=== PATIENT | male | born 1955 | race African-American/Black ===

== ENCOUNTER 2021-09-17 15:16 | Inpatient (IN) | payer MEDICARE, MEDICAID ==
[~2021-09-17] VITALS: Ht 170.2 cm; Wt 84.4 kg
[2021-09-17 16:12] LABS: HEMATOCRIT. 38.3 % (42.0-52.0); HEMOGLOBIN. 12.8 g/dL (14.0-18.0); MEAN CORPUSCULAR VOLUME 89.8 fL (80.0-94.0); MEAN PLATELET VOLUME 8.5 fl (7.4-10.4); PLATELET 156 x1000/uL (130-400); RED BLOOD CELL COUNT 4.26 mill/uL (4.7-6.1); RED CELL DISTRIBUTION WIDTH 14.8 % (11.6-14.6)
[2021-09-17 16:15] LABS: CHLORIDE 107 mEq/L (98-107)
[2021-09-17 16:55] LABS: PLATELET ESTIMATE NORMAL
[2021-09-17] MEDS ORDERED: ASPIRIN 81MG TABLET PO ONE (18:45)
[2021-09-17] MEDS ORDERED: ONDANSETRON HCL 4MG/2ML INJ IV PRN (21:45)
[2021-09-17] MEDS ORDERED: GUAIFENESIN 200MG/10ML SUGAR FREE UDC PO PRN (21:45)
[2021-09-17] MEDS ORDERED: MAGNESIUM/ALUMINUM HYDROXIDE/SIMETHICONE 30ML UDC PO PRN (21:45)
[2021-09-17] MEDS ORDERED: LORAZEPAM 2MG/ML CPJ IV PRN (21:45)
[2021-09-17] MEDS ORDERED: IPRATROPIUM/ALBUTEROL 0.5-3(2.5)MG/3ML NEB HHN PRN (21:45)
[2021-09-17] MEDS ORDERED: HYDROCODONE/ACETAMINOPHEN 5/325MG TABLET PO PRN (21:45)
[2021-09-17] MEDS ORDERED: DOCUSATE SODIUM 100MG CAPSULE PO PRN (21:45)
[2021-09-17] MEDS ORDERED: HYDRALAZINE 20MG/ML VIAL IV PRN (21:45)
[2021-09-17] MEDS ORDERED: DIPHENHYDRAMINE 50MG/ML VIAL IV PRN (21:45)
[2021-09-17] MEDS ORDERED: MORPHINE SULFATE 2 MG/ML CPJ (NOT FOR IM USE) IV PRN (22:00)
[2021-09-17 23:42] VITALS: BP 171/93
[2021-09-17] MEDS ORDERED: VYT1020 (23:59)
[2021-09-17] MEDS ORDERED: LINA290C PO (23:59)
[2021-09-17] MEDS ORDERED: ATOV1TAB PO (23:59)
[2021-09-17] MEDS ORDERED: QUIN10TA28 PO (23:59)
[2021-09-17] MEDS ORDERED: LACT10SO3 PO (23:59)
[2021-09-17] MEDS ORDERED: DOXA2TAB2 PO (23:59)
[2021-09-17] MEDS ORDERED: SUCR1TAB PO (23:59)
[2021-09-18] MEDS: CLONIDINE 0.1MG TABLET PO PRN (00:41)
[2021-09-18] MEDS: ENOXAPARIN 40MG/0.4ML SYR SUBCUT SCH ×2 (00:43→21:50)
[2021-09-18] MEDS: SODIUM CHLORIDE 0.9% INJ 3ML FLUSH IVF SCH ×3 (00:44→21:50)
[2021-09-18 04:00] VITALS: BP 125/67
[2021-09-18] MEDS: ACETAMINOPHEN 325MG TABLET PO PRN ×2 (04:09→12:58)
[2021-09-18 06:10] LABS: CHLORIDE 108 mEq/L (98-107)
[2021-09-18 06:13] LABS: HEMATOCRIT. 36.8 % (42.0-52.0); HEMOGLOBIN. 12.5 g/dL (14.0-18.0); MEAN CORPUSCULAR HEMOGLOBIN 30.2 pg (28.0-32.0); MEAN CORPUSCULAR VOLUME 88.7 fL (80.0-94.0); PLATELET 143 x1000/uL (130-400); RED BLOOD CELL COUNT 4.14 mill/uL (4.7-6.1)
[2021-09-18 07:45] VITALS: BP 108/61
[2021-09-18 09:56] LABS: T4 FREE 1.11 ng/dL (0.76-1.46)
[2021-09-18 11:10] VITALS: BP 122/59
[2021-09-18] MEDS: ASPIRIN 81MG TABLET PO SCH (11:15)
[2021-09-18 12:00] VITALS: BP 148/89
[2021-09-18] MEDS ORDERED: NITROGLYCERIN SPRAY/4.9GM CAN TL SCH (12:30)
[2021-09-18] MEDS ORDERED: IOHEXOL-350 100 ML BOTTLE ONE ×2 (13:02→14:16)
[2021-09-18 15:09] VITALS: BP 155/96
[2021-09-18 15:33] LABS: PLATELET ESTIMATE NORMAL
[2021-09-18 16:53] LABS: CREATINE KINASE 155 IU/L (39-308)
[2021-09-18] MEDS ORDERED: NALOXONE HCL 0.4MG/ML VIAL IV PRN (18:45)
[2021-09-18 20:00] VITALS: BP 134/82
[2021-09-19] VITALS (16 sets, daily range): BP systolic 131–174; BP diastolic 72–121
[2021-09-19 01:34] LABS: CREATINE KINASE 139 IU/L (39-308)
[2021-09-19 01:35] LABS: CREATINE KINASE MB FRACTION 1.3 ng/mL (0.5-3.6)
[2021-09-19] MEDS: SODIUM CHLORIDE 0.9% INJ 3ML FLUSH IVF SCH ×3 (05:31→22:06)
[2021-09-19] MEDS: ASPIRIN 81MG TABLET PO SCH (08:50)
[2021-09-19] MEDS ORDERED: DOXAZOSIN MESYLATE 2MG TABLET PO SCH (09:00)
[2021-09-19] MEDS ORDERED: SUCRALFATE 1G TABLET PO SCH (09:00)
[2021-09-19 09:10] LABS: HEMATOCRIT. 38.9 % (42.0-52.0); HEMOGLOBIN. 13.1 g/dL (14.0-18.0); MEAN CORPUSCULAR HEMOGLOBIN 29.8 pg (28.0-32.0); MEAN CORPUSCULAR VOLUME 88.4 fL (80.0-94.0); MEAN PLATELET VOLUME 9.5 fl (7.4-10.4); PLATELET 159 x1000/uL (130-400)
[2021-09-19] MEDS: DOXAZOSIN MESYLATE 2MG TABLET PO SCH (09:14)
[2021-09-19 09:17] LABS: CHLORIDE 106 mEq/L (98-107)
[2021-09-19] MEDS ORDERED: HEPARIN SODIUM 1,000 UNIT/1ML VIAL IV ONE (09:26)
[2021-09-19 09:27] LABS: CREATINE KINASE 163 IU/L (39-308)
[2021-09-19 09:29] LABS: CREATINE KINASE MB FRACTION 2.5 ng/mL (0.5-3.6)
[2021-09-19] MEDS ORDERED: LIDOCAINE HCL 1% 20ML VIAL (Pyxis) INJ ONE (12:13)
[2021-09-19] MEDS ORDERED: VERAPAMIL HCL 2.5 MG/1 ML 2ML VIAL IV ONE (12:13)
[2021-09-19] MEDS ORDERED: IODIXANOL 320MG/ML 100 ML BOTTLE IV ONE (12:13)
[2021-09-19] MEDS ORDERED: MIDAZOLAM HCL 2 MG/2 ML VIAL ONE (12:55)
[2021-09-19] MEDS ORDERED: FENTANYL CITRATE/PF 50MCG/ML 2ML VIAL ONE (12:55)
[2021-09-19] MEDS ORDERED: DIPHENHYDRAMINE 50MG/ML VIAL ONE (13:41)
[2021-09-19 13:49] LABS: PLATELET ESTIMATE NORMAL
[2021-09-19] MEDS ORDERED: ATROPINE SULFATE 1MG/10ML SYR IV PRN (15:00)
[2021-09-19] MEDS ORDERED: SODIUM CHLORIDE 0.9% 250 ML IV ONE (15:30)
[2021-09-19] MEDS: CLONIDINE 0.1MG TABLET PO PRN (17:10)
[2021-09-19] MEDS ORDERED: ATORVASTATIN CALCIUM 20MG TABLET PO SCH (21:00)
[2021-09-19] MEDS: ENOXAPARIN 40MG/0.4ML SYR SUBCUT SCH (21:00)
[2021-09-19] MEDS: SUCRALFATE 1G TABLET PO SCH (21:20)
[2021-09-20] VITALS (10 sets, daily range): BP systolic 128–151; BP diastolic 78–93
[2021-09-20] MEDS: ACETAMINOPHEN 325MG TABLET PO PRN ×2 (05:38→09:01)
[2021-09-20] MEDS: SODIUM CHLORIDE 0.9% INJ 3ML FLUSH IVF SCH (05:38)
[2021-09-20 07:52] LABS: HEMATOCRIT. 35.6 % (42.0-52.0); MEAN CORPUSCULAR HEMOGLOBIN 30.1 pg (28.0-32.0); MEAN CORPUSCULAR VOLUME 89.2 fL (80.0-94.0); MEAN PLATELET VOLUME 9.2 fl (7.4-10.4); PLATELET 147 x1000/uL (130-400); RED CELL DISTRIBUTION WIDTH 14.5 % (11.6-14.6)
[2021-09-20 07:52] LABS: CHLORIDE 106 mEq/L (98-107)
[2021-09-20] MEDS: SUCRALFATE 1G TABLET PO SCH (08:56)
[2021-09-20] MEDS: DOXAZOSIN MESYLATE 2MG TABLET PO SCH (08:57)
[2021-09-20] MEDS: ASPIRIN 81MG TABLET PO SCH (08:57)
[2021-09-20] MEDS ORDERED: CARVEDILOL 3.125 MG TABLET PO SCH ×2 (12:15→21:00)
[2021-09-20 14:48] LABS: PLATELET ESTIMATE NORMAL
== END 2021-09-20 15:45 | disposition home or self-care (01) | DRG 287 ==
LOC: ER 15:16 → EDBEDREQTM 21:37 → EDBEDREQ 21:37 → ENRESERV 21:50 → 6WST 09-18 00:05 → 3WST 09-19 15:15
PROVIDERS: ADMIT Internal Medicine; ATTEND Internal Medicine
PROC: 4A023N7 Measurement of Cardiac Sampling and Pressure, Left Heart, Percutaneous Approach (ICD-10-PCS; principal; 2021-09-19)
PROC: B211YZZ Fluoroscopy of Multiple Coronary Arteries using Other Contrast (ICD-10-PCS; 2021-09-19)
DX: I25.10 Atherosclerotic heart disease of native coronary artery without angina pectoris (principal); Q24.5 Malformation of coronary vessels; E78.5 Hyperlipidemia, unspecified; I10 Essential (primary) hypertension; N40.0 Benign prostatic hyperplasia without lower urinary tract symptoms; Z20.822 Contact with and (suspected) exposure to COVID-19; R77.8 Other specified abnormalities of plasma proteins; R51.9 Headache, unspecified; R54 Age-related physical debility; Z87.891 Personal history of nicotine dependence; Z79.899 Other long term (current) drug therapy
CPT/HCPCS: 36415; 71045; 75571; 80048; 80053; 80061; 82550; 82553; 83036; 83880; 84439; 84443; 84484; 85025; 85379; 87426; 93005; 93306; 93458; 93970; 99285; C1769; C1887; C1893; J0360; J1200; J1644; J1650; J2250; J3010; J3490; Q9967

== ENCOUNTER 2022-07-30 13:35 | Emergency (ER) | payer MEDICARE, MEDICAID ==
[~2022-07-30] VITALS: Ht 170.2 cm; Wt 85.0 kg
[~2022-07-30 13:35] MED LIST: ATOV1TAB PO; DOXA2TAB2 PO; LACT10SO3 PO; LINA290C PO; QUIN10TA28 PO; SUCR1TAB PO; VYT1020
[2022-07-30 13:41] VITALS: BP 123/84
== END 2022-07-30 14:43 | disposition left against medical advice (07) ==
LOC: ER 13:35
DX: Z53.21 Procedure and treatment not carried out due to patient leaving prior to being seen by health care provider (principal)